=== PATIENT | female | born 1950 | race Caucasian/White ===

== ENCOUNTER 2017-05-11 08:02 | Day surgery (SDC) | payer MEDICARE, OTHER ==
[~2017-05-11 08:02] MED LIST: Lactated Ringers 1,000 ML IV SCH; Lidocaine 1%/Sod Bicarbonate in NS 8.4% 1 ML Syringe IDERM PRN; Sodium Chloride 0.9% 10 ML Syringe FLUSH PRN
--- NOTE | 2017-05-11 09:03 | PCM.PREANE ---
Preanesthetic Assessment - Anesthesia/Transfusion/Family Hx Anesthesia History: Prior Anesthesia Reaction Type of Anesthesia Reaction: Excessive Nausea/Vomiting (With general anesthesia. ) Family History of Anesthesia Reaction: No - Review of Systems General: No Symptoms Pulmonary: Cough (Coughing spells this winter. No fever. Rarely productive. ) Cardiovascular: No Symptoms Gastrointestinal: No Symptoms Neurological: Other (Hard of Hearing) Other: Reports: Easy Bleeding (This winter has had trouble with nose bleeds. No bruising noted. Humidifier at home has helped. ) - Physical Assessment NPO Status Date: 05/11/17 NPO Status Time: 00:00 Pulse: 57 O2 Sat by Pulse Oximetry: 99 Respiratory Rate: 17 Blood Pressure: 120/83 Temperature: 37.2 C Weight: 69 kg ASA Class: 2 Mental Status: Alert & Oriented x3 Airway Class: Mallampati = 2 Dentition: Reports: Normal Dentition Thyro-Mental Finger Breadths: 2 Mouth Opening Finger Breadths: 3 ROM/Head Extension: Other Lungs: Clear to Auscultation Cardiovascular: Murmurs (Known history of murmurs. Mild Mitral and Tricuspid valve regurgitation on ECHO. ) - Lab Values: Laboratory Last Values MRSA (PCR) Negative 05/04/17 10:52 - Allergies Allergies/Adverse Reactions: Allergies Allergy/AdvReac Type Severity Reaction Status Date / Time bacitracin Allergy Mild Hives Verified 05/10/17 07:34 morphine Allergy Mild Itching Verified 05/10/17 07:34 povidone-iodine Allergy Mild Hives Verified 05/10/17 07:34 [From Betadine] soap [From Betadine] Allergy Mild Hives Verified 05/10/17 07:34 iodine Allergy Hives Verified 05/10/17 12:30 eggs Allergy Unknown Cannot Uncoded 05/10/17 12:32 Remember milk Allergy Cannot Uncoded 05/10/17 12:32 Remember - Acknowledgements Anesthesia Type Planned: MAC Pt an Appropriate Candidate for the Planned Anesthesia: Yes Alternatives and Risks of Anesthesia Discussed w Pt/Guardian: Yes Pt/Guardian Understands and Agrees with Anesthesia Plan: Yes PreAnesthesia Questionnaire HEENT History: Reports: Epistaxis, Hard of Hearing, Impaired Vision Other HEENT History: earaches Cardiovascular History: Reports: Heart Murmur Genitourinary History: Reports: Other (See Below) Other Genitourinary History: frequency of urination 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: Reports: Other OB/BYN History: 3 vaginal deliveries, trans abdominal flap on rt and left reconstruction Musculoskeletal History: Reports: Osteoarthritis Neurological History: Other Hematologic History: hyponatremia, anemia Oncologic (Cancer) History: Reports: Breast - Past Surgical History GI Surgical History: Reports: Colonoscopy Female Surgical History: Reports: Breast Implant Other Female Surgeries/Procedures: bilateral mastectomy Male Surgical History: Reports: Mastectomy Musculoskeletal Surgical History: Reports: Carpal Tunnel, Hip Replacement, Knee Replacement Other Musculoskeletal Surgeries/Procedures:: rt swollen calf, Oncologic Surgical History: Reports: Mastectomy Other Oncologic Surgeries/Procedures: breast implants - SUBSTANCE USE Smoking Status *Q: Never Smoker Second Hand Smoke Exposure: No Days Per Week of Alcohol Use: 0 (very little) Recreational Drug Use History: No - HOME MEDS Home Medications: Home Meds Calcium Carbonate [Calcium] 1,000 mg PO DAILY 08/05/15 [History] Clobetasol Propionate 15 gm TP DAILY 08/05/15 [History] Loratadine/Pseudoephedrine [Claritin-D 12 Hour] 5 - 120 mg PO Q12H 08/05/15 [ History] Multivitamin [Multivitamins] 1 each PO DAILY 08/05/15 [History] [place]-3S/DHA/Epa/Fish Oil/D3 [Fish Oil-Vit D3 Softgel] 1 each PO DAILY 08/05/15 [History] traZODone HCl [Trazodone HCl] 50 mg PO BEDTIME PRN 08/05/15 [History] Cholecalciferol (Vitamin D3) [Vitamin D3] 400 unit PO DAILY 05/10/17 [History] Hyluronic Acid Cream applic TOP ASDIRECTED 05/10/17 [History] Lutein/Minerals/Vit A,C & E [Ocuvite] 1 tab PO DAILY 05/10/17 [History] traMADol HCl [Ultram] 50 - 100 mg PO Q6H PRN #10 tablet 05/11/17 [Rx] - CURRENT (IN HOUSE) MEDS Current Meds: Current Medications Lactated Ringer's (Ringers, Lactated) 1,000 mls @ 125 mls/hr IV ASDIRECTED MAT Stop: 05/11/17 23:00 Lidocaine/Sodium Bicarbonate (Buffered Lidocaine 1% In Ns 8.4%) 0.25 ml IDERM ONETIME PRN PRN Reason: Prior to IV Start Stop: 05/11/17 18:00 Sodium Chloride (Saline Flush) 10 ml FLUSH ASDIRECTED PRN PRN Reason: Keep Vein Open Stop: 05/11/17 18:00
[2017-05-11] MEDS ORDERED: Propofol 200 MG/20 ML SDV ONE (09:32)
[2017-05-11] MEDS ORDERED: Lidocaine 1% 0 ML ONE ×2 (09:32)
[2017-05-11] MEDS ORDERED: fentaNYL 100 MCG/2 ML SDV ONE (09:32)
[2017-05-11] MEDS ORDERED: ceFAZolin 1 GM Vial ONE ×2 (09:32)
[2017-05-11] MEDS ORDERED: Lidocaine 1% 30 ML SDV ONE (09:40)
[2017-05-11] MEDS ORDERED: Ondansetron 4 MG/2 ML SDV IVPUSH PRN (10:15)
[2017-05-11] MEDS: Bupivacaine 0.25% 10 ML SDV ONE ×2 (10:28→10:35)
--- NOTE | 2017-05-11 10:52 | PCM48HPAN ---
Post Anesthesia Note - EVALUATION WITHIN 48HRS OF ANESTHETIC Vital Signs in Normal Range: Yes Patient Participated in Evaluation: Yes Respiratory Function Stable: Yes Airway Patent: Yes Cardiovascular Function Stable: Yes Hydration Status Stable: Yes Pain Control Satisfactory: Yes Nausea and Vomiting Control Satisfactory: Yes Mental Status Recovered: Yes
[2017-05-11 12:17] VITALS: BP 107/56
--- NOTE | 2017-05-19 07:56 | PCM.OPNOTE ---
- General Post-Op/Procedure Note Date of Surgery/Procedure: 05/11/17 Operative Procedure(s): right ring finger a1 yokasta release Pre Op Diagnosis: right ring finger stenosing tenosynovitis Post-Op Diagnosis: Same Anesthesia Technique: Local, MAC Primary Surgeon: Alphonso Eng Anesthesia Provider: Suzy Rooney Header Setup Operator: Nu Salinas in mLs: 2 Complications: None Condition: Good
--- NOTE | 2017-05-22 22:11 | OR ---
DATE OF OPERATION: 05/11/2017 SURGEON: Alphonso Eng MD OPERATION PERFORMED: Right ring finger A1 yokasta release. PREOPERATIVE DIAGNOSIS: Right ring finger stenosing tenosynovitis. POSTOPERATIVE DIAGNOSIS: Right ring finger stenosing tenosynovitis. ANESTHESIA: Local MAC. ANESTHESIA PROVIDER: Suzy Rooney CRNA. ASSISTANTS: Nu Salinas PA-C. ESTIMATED BLOOD LOSS: 2 mL. COMPLICATIONS: None. CONDITION: Stable. DESCRIPTION OF PROCEDURE: The patient was identified in the preop holding area. Proper site was marked and identified by the surgeon. The patient was taken back to the operating theater where after adequate anesthesia the patient's right upper extremity was sterilely prepped and draped in the usual sterile fashion. OR time-out was performed. The patient had received 2 g of IV Ancef. At this time, her right upper extremity was exsanguinated and Esmarch was used on the forearm as a tourniquet. At this time, 1% lidocaine without epinephrine and 0.25% Marcaine without epinephrine were used to anesthetize over the A1 yokasta. An incision was made. Blunt dissection was taken down to the A1 yokasta. Ragnell retractors were used to retract the neurovascular bundles. A [place] blade was then used for resection of the A1 yokasta. Tenotomy scissors used was used to make sure it was resected both proximally and distally, making sure not to get into the A2 yokasta. At this time, it was found to be adequately released. The tendon was brought through the wound bed and was found to be adequately released with no signs of tendon adhesions. At this time, adequate saline was irrigated through the wound. 4-0 nylon simple suture was used for closure of the skin. The patient tolerated the procedure well and sent to PACU in stable condition. MMODAL /[id number]
== END 2017-05-11 11:55 | disposition home or self-care (01) ==
LOC: JD.SDS 08:02
PROVIDERS: ATTEND Orthopaedic Surgery
DX: M65.841 Other synovitis and tenosynovitis, right hand (principal); Z79.899 Other long term (current) drug therapy
CPT/HCPCS: 26055; 87641; J0690; J2405; J3010; J7120; 01810; J2001; J2704

== ENCOUNTER 2019-03-01 11:58 | Day surgery (SDC) | payer MEDICARE, OTHER ==
[~2019-03-01 11:58] MED LIST changes: +Cefuroxime 10 MG/ML SYRINGE EYERT SCH; -Lactated Ringers 1,000 ML IV SCH; +Lidocaine 1% PF 2 ML SDV INJECT SCH; -Lidocaine 1%/Sod Bicarbonate in NS 8.4% 1 ML Syringe IDERM PRN; +Pilocarpine 4% Ophth Soln 15 ML Bot EYERT SCH; +Polymyxin B/Trimethoprim 10 ML Bottle EYERT SCH; -Sodium Chloride 0.9% 10 ML Syringe FLUSH PRN
[2019-03-01] MEDS: Ofloxacin 0.3% Ophth Soln 5 ML Bottle EYERT SCH ×3 (12:50→14:28)
[2019-03-01] MEDS: Brimonidine 0.2% Ophth Soln 5 ML Bottle EYERT SCH ×3 (12:55→14:28)
[2019-03-01] MEDS: Phenylephrine 2.5% Ophth Soln 2 ML Bot EYERT SCH ×5 (13:00→14:13)
[2019-03-01] MEDS: Tropicamide 1% Ophth Soln 15 ML Bottle EYERT SCH ×4 (13:05→13:55)
--- NOTE | 2019-03-01 13:32 | PCM.PREANE ---
Preanesthetic Assessment - Procedure Proposed Procedure: cataract right - Anesthesia/Transfusion/Family Hx Anesthesia History: Prior Anesthesia Reaction Type of Anesthesia Reaction: Excessive Nausea/Vomiting Family History of Anesthesia Reaction: No Transfusion History: No Prior Transfusion(s) - Review of Systems General: No Symptoms Pulmonary: No Symptoms Cardiovascular: No Symptoms Gastrointestinal: No Symptoms Neurological: No Symptoms Other: Reports: None - Physical Assessment NPO Status Date: 03/01/19 (breakfast) NPO Status Time: 06:00 Vital Signs: Last Vital Signs Temp 97.4 F 03/01/19 12:25 Pulse 51 L 03/01/19 12:25 Resp 16 03/01/19 12:25 BP 113/60 03/01/19 12:25 Pulse Ox 98 03/01/19 12:25 Height: 5 ft 4 in Weight: 65.317 kg ASA Class: 3 Mental Status: Alert & Oriented x3 Airway Class: Mallampati = 1 Dentition: Reports: Normal Dentition Thyro-Mental Finger Breadths: 3 Mouth Opening Finger Breadths: 3 ROM/Head Extension: Full Lungs: Clear to Auscultation, Normal Respiratory Effort Cardiovascular: Regular Rate, Regular Rhythm, Murmurs - Allergies Allergies/Adverse Reactions: Allergies Allergy/AdvReac Type Severity Reaction Status Date / Time bacitracin Allergy Mild Hives Verified 02/28/19 16:56 morphine Allergy Mild Itching Verified 02/28/19 16:56 povidone-iodine Allergy Mild Hives Verified 02/28/19 16:56 [From Betadine] soap [From Betadine] Allergy Mild Hives Verified 02/28/19 16:56 egg Allergy Cannot Verified 02/28/19 16:56 Remember iodine Allergy Hives Verified 02/28/19 16:56 milk Allergy Cannot Verified 02/28/19 16:56 Remember - Blood Blood Available: No - Anesthesia Plan Beta Philip: Metoprolol Med Last Dose Date: 03/01/19 Med Last Dose Time: 06:00 - Acknowledgements Anesthesia Type Planned: MAC Pt an Appropriate Candidate for the Planned Anesthesia: Yes Alternatives and Risks of Anesthesia Discussed w Pt/Guardian: Yes Pt/Guardian Understands and Agrees with Anesthesia Plan: Yes PreAnesthesia Questionnaire HEENT History: Reports: Epistaxis, Hard of Hearing, Impaired Vision Other HEENT History: earaches Cardiovascular History: Reports: Heart Murmur, Other (See Below) (march 2018 valve aortic and aneurysm repair) Respiratory History: Reports: None Gastrointestinal History: Reports: None Genitourinary History: Reports: Other (See Below) Other Genitourinary History: frequency of urination 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 OB/BYN History: 3 vaginal deliveries, trans abdominal flap on rt and left reconstruction Musculoskeletal History: Reports: Osteoarthritis Neurological History: Other Hematologic History: hyponatremia, anemia Oncologic (Cancer) History: Reports: Breast - Past Surgical History Cardiovascular Surgical History: Reports: Valve Replacement (aortic 2018 ) GI Surgical History: Reports: Colonoscopy Female Surgical History: Reports: Breast Implant Other Female Surgeries/Procedures: bilateral mastectomy Male Surgical History: Reports: Mastectomy (1998) Musculoskeletal Surgical History: Reports: Carpal Tunnel, Hip Replacement, Knee Replacement Other Musculoskeletal Surgeries/Procedures:: rt swollen calf, Oncologic Surgical History: Reports: Mastectomy Other Oncologic Surgeries/Procedures: breast implants - SUBSTANCE USE Tobacco Use Within Last Twelve Months: No Second Hand Smoke Exposure: No Days Per Week of Alcohol Use: 0 Recreational Drug Use History: No - HOME MEDS Home Medications: Home Meds Lutein/Minerals/Vit A,C & E [Ocuvite] 1 tab PO DAILY 05/10/17 [History] Aspirin [Adult Aspirin] 81 mg PO DAILY 04/11/18 [History] Metoprolol Tartrate 12.5 mg PO BID 04/11/18 [History] Rosuvastatin Calcium 5 mg PO DAILY 02/28/19 [History] - CURRENT (IN HOUSE) MEDS Current Meds: Current Medications Brimonidine Tartrate (Alphagan 0.2% Oph Soln) 0 ml EYERT ASDIRECTED MAT Stop: 03/01/19 18:00 Last Admin: 03/01/19 12:55 Dose: 1 drop Cefuroxime Sodium (Zinacef) 0 mg EYERT ASDIRECTED MAT Stop: 03/01/19 18:00 Lidocaine HCl (Xylocaine-Mpf 1%) 0 ml INJECT ASDIRECTED MAT Stop: 03/01/19 18:00 Ofloxacin (Ocuflox 0.3% Oph Soln) 0 ml EYERT ASDIRECTED MAT Stop: 03/01/19 18:00 Last Admin: 03/01/19 12:50 Dose: 1 drop Phenylephrine HCl (Kilo-Synephrine 2.5% Oph Soln) 0 ml EYERT ASDIRECTED MAT Stop: 03/01/19 18:00 Last Admin: 03/01/19 13:25 Dose: 1 drop Pilocarpine HCl (Pilocar 4% Ophth Soln) 0 ml EYERT ASDIRECTED MAT Stop: 03/01/19 18:00 Tetracaine HCl (Tetracaine 0.5% Steri-Unit Daphne) 0 ml EYERT ASDIRECTED MAT Stop: 03/01/19 18:00 Tropicamide (Mydriacyl 1% Ophth Soln) 0 ml EYERT ASDIRECTED MAT Stop: 03/01/19 18:00 Last Admin: 03/01/19 13:20 Dose: 1 drop Discontinued Medications Polymyxin/Trimethoprim Sulfate (Polytrim Ophth Soln) 0 ml EYERT ASDIRECTED MAT Stop: 03/01/19 18:00
[2019-03-01] MEDS: Tetracaine HCl/PF 0.5% 4 ML Bottle EYERT SCH ×2 (14:06→14:18)
--- NOTE | 2019-03-01 14:23 | PCM48HPAN ---
Post Anesthesia Note - EVALUATION WITHIN 48HRS OF ANESTHETIC Vital Signs in Normal Range: Yes Patient Participated in Evaluation: Yes Respiratory Function Stable: Yes Airway Patent: Yes Cardiovascular Function Stable: Yes Hydration Status Stable: Yes Pain Control Satisfactory: Yes Nausea and Vomiting Control Satisfactory: Yes Mental Status Recovered: Yes Vital Signs: Last Vital Signs Temp 36.3 C 03/01/19 12:25 Pulse 51 L 03/01/19 12:25 Resp 16 03/01/19 12:25 BP 113/60 03/01/19 12:25 Pulse Ox 98 03/01/19 12:25
[2019-03-01 14:47] VITALS: BP 121/65; PULSE 52
== END 2019-03-01 14:44 | disposition home or self-care (01) ==
LOC: JD.SDS 11:58
PROVIDERS: ATTEND Ophthalmology
DX: H25.813 Combined forms of age-related cataract, bilateral (principal); H35.3131 Nonexudative age-related macular degeneration, bilateral, early dry stage; H35.363 Drusen (degenerative) of macula, bilateral; H40.003 Preglaucoma, unspecified, bilateral; H44.23 Degenerative myopia, bilateral; H16.223 Keratoconjunctivitis sicca, not specified as Sjogren's, bilateral; H16.103 Unspecified superficial keratitis, bilateral; M19.90 Unspecified osteoarthritis, unspecified site; Z88.5 Allergy status to narcotic agent; Z88.1 Allergy status to other antibiotic agents; Z88.3 Allergy status to other anti-infective agents; Z91.012 Allergy to eggs; Z91.011 Allergy to milk products; Z83.511 Family history of glaucoma; Z83.518 Family history of other specified eye disorder; Z79.82 Long term (current) use of aspirin; Z79.51 Long term (current) use of inhaled steroids; Z79.899 Other long term (current) drug therapy
CPT/HCPCS: 66984; J0697; J2001; A9270-GY

== ENCOUNTER 2019-04-05 07:36 | Day surgery (SDC) | payer MEDICARE, OTHER ==
[2019-04-05] MEDS: Polymyxin B/Trimethoprim 10 ML Bottle EYELF SCH ×4 (08:00→09:48)
--- NOTE | 2019-04-05 08:01 | PCM.PREANE ---
Preanesthetic Assessment - Anesthesia/Transfusion/Family Hx Anesthesia History: Prior Anesthesia Reaction Type of Anesthesia Reaction: Excessive Nausea/Vomiting Family History of Anesthesia Reaction: No Transfusion History: No Prior Transfusion(s) Intubation History: Unknown - Review of Systems General: No Symptoms (cold symptoms for a week, getting beter per patient) Pulmonary: No Symptoms (Mar 2018, aortic valve and aneurysm surgery noted.), Cough Cardiovascular: No Symptoms (Valvular heart disease), Palpitations Gastrointestinal: No Symptoms (GERD on occasion) Neurological: Dizziness (visually related with glasses per patient, and adjustment with metoprolol, with head positioning) Other: Reports: None (BUN elevated avoids NSAIDS), Easy Bleeding (easy bloody noses), Sinus Problem - Physical Assessment NPO Status Date: 04/04/19 NPO Status Time: 18:30 Vital Signs: HR: 55 BP:109/62 Resp: 16 Sat: 98% Temp: 97.2 Height: 1.7 m Weight: 68.039 kg ASA Class: 2 Mental Status: Alert & Oriented x3 Airway Class: Mallampati = 2 Dentition: Reports: Normal Dentition, [place] Thyro-Mental Finger Breadths: 3 Mouth Opening Finger Breadths: 3 ROM/Head Extension: Full Lungs: Clear to Auscultation, Normal Respiratory Effort Cardiovascular: Regular Rate, Regular Rhythm, No Murmurs - Allergies Allergies/Adverse Reactions: Allergies Allergy/AdvReac Type Severity Reaction Status Date / Time bacitracin Allergy Mild Hives Verified 04/02/19 15:10 morphine Allergy Mild Itching Verified 04/02/19 15:10 povidone-iodine Allergy Mild Hives Verified 04/02/19 15:10 [From Betadine] soap [From Betadine] Allergy Mild Hives Verified 04/02/19 15:10 - Anesthesia Plan Pre-Op Medication Ordered: Beta Philip Beta Philip: Metoprolol Med Last Dose Date: 04/05/19 Med Last Dose Time: 06:00 - Acknowledgements Anesthesia Type Planned: MAC Pt an Appropriate Candidate for the Planned Anesthesia: Yes Alternatives and Risks of Anesthesia Discussed w Pt/Guardian: Yes Pt/Guardian Understands and Agrees with Anesthesia Plan: Yes PreAnesthesia Questionnaire HEENT History: Reports: Epistaxis, Hard of Hearing, Impaired Vision Other HEENT History: earaches Cardiovascular History: Reports: Heart Murmur, Other (See Below) (march 2018 valve aortic and aneurysm repair) Respiratory History: Reports: None Gastrointestinal History: Reports: None Genitourinary History: Reports: Other (See Below) Other Genitourinary History: frequency of urination 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 OB/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 History: 3 vaginal deliveries, trans abdominal flap on rt and left reconstruction Musculoskeletal History: Reports: Osteoarthritis Neurological History: Other Hematologic History: hyponatremia, anemia Oncologic (Cancer) History: Reports: Breast - Past Surgical History Cardiovascular Surgical History: Reports: Valve Replacement (aortic 2018 ) GI Surgical History: Reports: Colonoscopy Female Surgical History: Reports: Breast Implant Other Female Surgeries/Procedures: bilateral mastectomy Male Surgical History: Reports: Mastectomy (1998) Musculoskeletal Surgical History: Reports: Carpal Tunnel, Hip Replacement, Knee Replacement Other Musculoskeletal Surgeries/Procedures:: rt swollen calf, Oncologic Surgical History: Reports: Mastectomy Other Oncologic Surgeries/Procedures: breast implants - HOME MEDS Home Medications: Home Meds Lutein/Minerals/Vit A,C & E [Ocuvite] 1 tab PO DAILY 05/10/17 [History] Aspirin [Adult Aspirin] 81 mg PO DAILY 04/11/18 [History] Rosuvastatin Calcium 5 mg PO DAILY 02/28/19 [History] Acetaminophen/Diphenhydramine [Acetaminophen Pm Caplet] 1 tab PO BEDTIME PRN [History] Calcium Carbonate/Vitamin D3 [Calcium 500 + Vit D 200 Caplet] 2 tab PO DAILY [History] Fluticasone Propionate [Flonase] 1 spray NASBOTH DAILY 04/02/19 [History] Hyaluronic Acid, Hydrolyzed [Hydrolyzed Hyaluronic Acid] 1 gm VAG ASDIRECTED [History] Melatonin 3 mg PO BEDTIME PRN 04/02/19 [History] Metoprolol Succinate 25 mg PO DAILY 04/02/19 [History] Multivitamin [One-A-Day Essential] 1 tab PO DAILY 04/02/19 [History] Triamcinolone Acetonide [Triamcinolone Acetonide 0.1% Oint] 1 applic TOP ASDIRECTED 04/02/19 [History] traZODone HCl [Trazodone HCl] 50 mg PO BEDTIME PRN 04/02/19 [History] - CURRENT (IN HOUSE) MEDS Current Meds: Current Medications Brimonidine Tartrate (Alphagan 0.2% Ophth Soln) 0 ml EYELF ASDIRECTED MAT Stop: 04/05/19 18:00 Cefuroxime Sodium (Zinacef) 0 mg EYELF ASDIRECTED MAT Stop: 04/05/19 18:00 Lidocaine HCl (Xylocaine-Mpf 1%) 0 ml INJECT ASDIRECTED MAT Stop: 04/05/19 18:00 Phenylephrine HCl (Kilo-Synephrine 2.5% Ophth Soln) 0 ml EYELF ASDIRECTED MAT Stop: 04/05/19 18:00 Pilocarpine HCl (Pilocar 4% Ophth Soln) 0 ml EYELF ASDIRECTED MAT Stop: 04/05/19 18:00 Polymyxin/Trimethoprim Sulfate (Polytrim Ophth Soln) 0 ml EYELF ASDIRECTED MAT Stop: 04/05/19 18:00 Tetracaine HCl (Tetracaine 0.5% Steri-Unit Daphne) 0 ml EYELF ASDIRECTED MAT Stop: 04/05/19 18:00 Tropicamide (Mydriacyl 1% Ophth Soln) 0 ml EYELF ASDIRECTED MAT Stop: 04/05/19 18:00
[2019-04-05] MEDS: Brimonidine 0.2% Ophth Soln 5 ML Bottle EYELF SCH ×4 (08:05→09:48)
[2019-04-05] MEDS: Phenylephrine 2.5% Ophth Soln 2 ML Bot EYELF SCH ×6 (08:13→09:42)
[2019-04-05] MEDS: Tropicamide 1% Ophth Soln 15 ML Bottle EYELF SCH ×4 (08:18→09:16)
[2019-04-05] MEDS: Tetracaine HCl/PF 0.5% 4 ML Bottle EYELF SCH ×3 (09:25→09:42)
[2019-04-05] MEDS: Lidocaine 1% PF 2 ML SDV INJECT SCH ×2 (09:36→09:43)
[2019-04-05] MEDS: Cefuroxime 10 MG/ML SYRINGE EYELF SCH ×2 (09:43→09:47)
[2019-04-05] MEDS: Pilocarpine 4% Ophth Soln 15 ML Bot EYELF SCH ×2 (09:43→09:48)
--- NOTE | 2019-04-05 09:49 | PCM48HPAN ---
Post Anesthesia Note - EVALUATION WITHIN 48HRS OF ANESTHETIC Vital Signs in Normal Range: Yes Patient Participated in Evaluation: Yes Respiratory Function Stable: Yes Airway Patent: Yes Cardiovascular Function Stable: Yes Hydration Status Stable: Yes Pain Control Satisfactory: Yes Nausea and Vomiting Control Satisfactory: Yes Mental Status Recovered: Yes Vital Signs: Last Vital Signs Temp 36.2 C 04/05/19 07:40 Pulse 55 L 04/05/19 07:40 Resp 16 04/05/19 07:40 BP 109/62 04/05/19 07:40 Pulse Ox 98 04/05/19 07:40
[2019-04-05 11:16] VITALS: BP 99/56; PULSE 53
== END 2019-04-05 10:01 | disposition home or self-care (01) ==
LOC: JD.SDS 07:36
PROVIDERS: ATTEND Ophthalmology
DX: H25.812 Combined forms of age-related cataract, left eye (principal); H44.23 Degenerative myopia, bilateral; M19.90 Unspecified osteoarthritis, unspecified site; Z88.5 Allergy status to narcotic agent; Z88.8 Allergy status to other drugs, medicaments and biological substances; Z91.048 Other nonmedicinal substance allergy status; Z79.82 Long term (current) use of aspirin; Z79.899 Other long term (current) drug therapy; Z98.41 Cataract extraction status, right eye; Z96.1 Presence of intraocular lens
CPT/HCPCS: 66984; J0697; J2001; C1780

== ENCOUNTER 2019-12-21 21:59 | Emergency (ER) | payer MEDICARE, OTHER ==
[2019-12-21 22:07] VITALS: BP 134/70; PULSE 71
--- NOTE | 2019-12-21 22:53 | EDM.PDOC ---
ED HPI GENERAL MEDICAL PROBLEM - General Chief Complaint: General Stated Complaint: [place] AMB Time Seen by Provider: 12/21/19 22:14 Source of Information: Reports: Patient History Limitations: Reports: Altered Mental Status (Patient is confused) - History of Present Illness INITIAL COMMENTS - FREE TEXT/NARRATIVE: Mrs. Boyer is a very pleasant 69-year-old woman who is now brought to the ED by EMS for confusion and memory loss. 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 The family was apparently driving the patient to [place] to be evaluated, when she complained of anterior left shoulder pain, therefore they pulled over and called EMS. EMS brought the pa tient to the ED. From the patient's perspective, she states that she does not recall undergoing any sort of surgical procedure yesterday. She seems to recall a consultation with a vascular surgeon earlier this week. She states that she was out on a boat earlier today, possibly fishing, although she does not recall catching anything. She states that ordinarily it is her responsibility to bring the boat and, but she does not recall doing that, either. States that she had some anterior left shoulder pain around the time that she came to the ED, but that it has since resolved, and at this time, she has no pain whatsoever, including no headache. She denies recent dyspnea or palpitations. No recent nausea or vomiting. Here in the ED, the patient is found to be hemodynamically stable, afebrile, saturating 96% on room air. The patient denies having a recent fever, chills, sore throat, ear pain, nasal or sinus congestion, cough, dyspnea, chest pain, palpitations, nausea, vomiting, constipation, diarrhea, abdominal pain, urinary symptoms, recent weight gain or weight loss, recent bloody bowel movements or black bowel movements, recent joint aches, headaches, or rashes. The patient's Women's Health provider is Fela douglas NP. Her Eligibility Services Representative is Dr. Gurjit Tavares. Her Orthopedic Surgeon is Dr. Alphonso Eng. - Related Data Allergies Allergy/AdvReac Type Severity Reaction Status Date / Time bacitracin Allergy Mild Hives Verified 04/02/19 15:10 morphine Allergy Mild Itching Verified 04/02/19 15:10 povidone-iodine Allergy Mild Hives Verified 04/02/19 15:10 [From Betadine] soap [From Betadine] Allergy Mild Hives Verified 04/02/19 15:10 Home Meds: Home Meds Lutein/Minerals/Vit A,C & E [Ocuvite] 1 tab PO DAILY 05/10/17 [History] Aspirin [Adult Aspirin] 81 mg PO DAILY 04/11/18 [History] Rosuvastatin Calcium 5 mg PO DAILY 02/28/19 [History] Acetaminophen/Diphenhydramine [Acetaminophen Pm Caplet] 1 tab PO BEDTIME PRN 04/02/19 [History] Calcium Carbonate/Vitamin D3 [Calcium 500 + Vit D 200 Caplet] 2 tab PO DAILY 04/02/19 [History] Fluticasone Propionate [Flonase] 1 spray NASBOTH DAILY 04/02/19 [History] Hyaluronic Acid, Hydrolyzed [Hydrolyzed Hyaluronic Acid] 1 gm VAG ASDIRECTED 04/02/19 [History] Melatonin 3 mg PO BEDTIME PRN 04/02/19 [History] Metoprolol Succinate 25 mg PO DAILY 04/02/19 [History] Multivitamin [One-A-Day Essential] 1 tab PO DAILY 04/02/19 [History] Triamcinolone Acetonide [Triamcinolone Acetonide 0.1% Oint] 1 applic TOP ASDIRECTED 04/02/19 [History] traZODone HCl [Trazodone HCl] 50 mg PO BEDTIME PRN 04/02/19 [History] Past Medical History HEENT History: Reports: Hard of Hearing (wears hearing aids), Impaired Vision Cardiovascular History: Reports: Aneurysm (aortic, s/p repair), High Cholesterol, Hypertension Respiratory History: Reports: Sleep Apnea (nightly CPAP 11) Gastrointestinal History: Reports: Colon Polyp Genitourinary History: Reports: Urinary Incontinence (stress incontinence) Musculoskeletal History: Reports: Osteoarthritis Psychiatric History: Reports: Anxiety (untreated) Oncologic (Cancer) History: Reports: Breast - Past Surgical History HEENT Surgical History: Reports: Cataract Surgery (bilateral), Oral Surgery (dental extractions) Cardiovascular Surgical History: Reports: Aneurysm (aortic (ascending?)), Valve Replacement (bovine aortic) GI Surgical History: Reports: Colonoscopy (x 2) Female Surgical History: Reports: Breast Implant, D&C (x 1), Tubal Ligation Musculoskeletal Surgical History: Reports: Carpal Tunnel, Hip Replacement (right), Knee Replacement (right) Oncologic Surgical History: Reports: Mastectomy (bilateral) Social & Family History - Tobacco Use Smoking Status *Q: Never Smoker - Caffeine Use Caffeine Use: Reports: Soda, Tea - Alcohol Use Alcohol Use History: Yes Alcohol Use Frequency: Rarely - Recreational Drug Use Recreational Drug Use: No - Living Situation & Occupation Living situation: Reports: , with Spouse Occupation: Retired ED ROS GENERAL - Review of Systems Review Of Systems: Comprehensive ROS is negative, except as noted in HPI. ED EXAM, GENERAL - Physical Exam Exam: See Below Exam Limited By: No Limitations General Appearance: Alert, WD/WN, No Apparent Distress Eye Exam: Bilateral Eye: EOMI, Normal Inspection, PERRL (s/p cataract surgery, but still good constriction) Ears: Normal External Exam, Hearing Grossly Normal Nose: Normal Inspection Throat/Mouth: Normal Inspection, Normal Lips, Normal Voice, No Airway Compromise Head: Atraumatic, Normocephalic Neck: Normal Inspection, Full Range of Motion, Carotid Bruit (left). No: Lymphadenopathy (L), Lymphadenopathy (R) Respiratory/Chest: No Respiratory Distress, Lungs Clear, Normal Breath Sounds, No Accessory Muscle Use Cardiovascular: Normal Peripheral Pulses, Regular Rate, Rhythm, No Gallop, No JVD, No Murmur, No Rub, Systolic Murmur (heard best at [facility]) Peripheral Pulses: 3+: Radial (L), Radial (R) GI/Abdominal: Normal Bowel Sounds, Soft, Non-Tender, No Organomegaly, No Distention, No Abnormal Bruit, No Mass Back Exam: Normal Inspection, Full Range of Motion, NT Extremities: Normal Inspection, Normal Range of Motion, No Pedal Edema, Normal Capillary Refill Neurological: Alert, Oriented, CN II-XII Intact, No Motor/Sensory Deficits, Confused Psychiatric: Normal Affect Skin Exam: Warm, Dry, Intact, Normal Color, No Rash EKG INTERPRETATION EKG Date: 12/21/19 Time: 22:00 Rhythm: NSR Rate (Beats/Min): 63 [place]: Normal P-Wave: Present QRS: Normal ST-T: Depressed (<1 mm to limb + leads, but no T wave inversions to suggest ischemia) QT: Normal Comparison: NA - No Prior EKG Course - Vital Signs Last Recorded V/S: Last Vital Signs Temp 36.9 C 12/21/19 22:03 Pulse 71 12/21/19 22:03 Resp 16 12/21/19 22:03 BP 134/70 12/21/19 22:03 Pulse Ox 96 12/21/19 22:03 - Orders/Labs/Meds Orders: Active Orders 24 hr Category Date Time Status EKG Documentation Completion [RC] STAT Care 12/21/19 22:40 Active Chest 2V [CR] Stat Exams 12/21/19 22:39 Taken Head wo Cont [CT] Stat Exams 12/21/19 22:39 Taken Labs: Laboratory Tests 12/21/19 12/21/19 12/21/19 Range/Units 22:50 22:50 22:50 WBC 6.57 (3.98-10.04) K/mm3 RBC 3.98 (3.98-5.22) M/mm3 Hgb 12.5 (11.2-15.7) gm/dl Hct 38.7 (34.1-44.9) % MCV 97.2 H (79.4-94.8) fl MCH 31.4 (25.6-32.2) pg MCHC 32.3 (32.2-35.5) g/dl RDW Std Deviation 46.1 (36.4-46.3) fL Plt Count 189 D (182-369) K/mm3 MPV 10.2 (9.4-12.3) fl Neutrophils % (Manual) 70 H (40-60) % Band Neutrophils % 0 (0-10) % Lymphocytes % (Manual) 23 (20-40) % Atypical Lymphs % 0 % Monocytes % (Manual) 4 (2-10) % Eosinophils % (Manual) 2 (0.7-5.8) % Basophils % (Manual) 1 (0.1-1.2) Platelet Estimate Adequate Poikilocytosis 1+ slight Ovalocytes 1+ slight RBC Morph Comment Not Reportable D-Dimer, Quantitative 0.65 H (0.19-0.50) mg/L Sodium 141 (136-145) mEq/L Potassium 4.1 (3.5-5.1) mEq/L Chloride 105 (98-107) mEq/L Carbon Dioxide 30 (21-32) mEq/L Anion Gap 10.1 (5-15) BUN 33 H (7-18) mg/dL Creatinine 1.5 H (0.55-1.02) mg/dL Est Cr Clr Drug Dosing 30.57 mL/min Estimated GFR (MDRD) 34 (>60) mL/min BUN/Creatinine Ratio 22.0 H (14-18) Glucose 134 H (80-115) mg/dL Calcium 8.4 L (8.5-10.1) mg/dL Magnesium 2.0 (1.8-2.4) mg/dl Total Bilirubin 0.7 (0.2-1.0) mg/dL AST 15 (15-37) U/L ALT 28 (14-59) U/L Alkaline Phosphatase 51 (46-116) U/L Troponin I < 0.017 (0.00-0.056) ng/mL Total Protein 8.2 (6.4-8.2) g/dl Albumin 3.3 L (3.4-5.0) g/dl Globulin 4.9 gm/dL Albumin/Globulin Ratio 0.7 L (1-2) TSH 3rd Generation 3.004 (0.358-3.74) uIU/mL Urine Color (Yellow) Urine Appearance (Clear) Urine pH (5.0-8.0) Ur Specific [place] (1.005-1.030) Urine Protein (Negative) Urine Glucose (UA) (Negative) Urine Ketones (Negative) Urine Occult Blood (Negative) Urine Nitrite (Negative) Urine Bilirubin (Negative) Urine Urobilinogen (0.2-1.0) Ur Leukocyte Esterase (Negative) Urine RBC (0-5) /hpf Urine WBC (0-5) /hpf Ur Epithelial Cells (0-5) /hpf Urine Bacteria (FEW) /hpf Urine Mucus (FEW) /hpf SARS-CoV-2 RNA (JAMES) (NEGATIVE) 12/22/19 12/22/19 Range/Units 00:00 00:04 WBC (3.98-10.04) K/mm3 RBC (3.98-5.22) M/mm3 Hgb (11.2-15.7) gm/dl Hct (34.1-44.9) % MCV (79.4-94.8) fl MCH (25.6-32.2) pg MCHC (32.2-35.5) g/dl RDW Std Deviation (36.4-46.3) fL Plt Count (182-369) K/mm3 MPV (9.4-12.3) fl Neutrophils % (Manual) (40-60) % Band Neutrophils % (0-10) % Lymphocytes % (Manual) (20-40) % Atypical Lymphs % % Monocytes % (Manual) (2-10) % Eosinophils % (Manual) (0.7-5.8) % Basophils % (Manual) (0.1-1.2) Platelet Estimate Poikilocytosis Ovalocytes RBC Morph Comment D-Dimer, Quantitative (0.19-0.50) mg/L Sodium (136-145) mEq/L Potassium (3.5-5.1) mEq/L Chloride (98-107) mEq/L Carbon Dioxide (21-32) mEq/L Anion Gap (5-15) BUN (7-18) mg/dL Creatinine (0.55-1.02) mg/dL Est Cr Clr Drug Dosing mL/min Estimated GFR (MDRD) (>60) mL/min BUN/Creatinine Ratio (14-18) Glucose (80-115) mg/dL Calcium (8.5-10.1) mg/dL Magnesium (1.8-2.4) mg/dl Total Bilirubin (0.2-1.0) mg/dL AST (15-37) U/L ALT (14-59) U/L Alkaline Phosphatase (46-116) U/L Troponin I (0.00-0.056) ng/mL Total Protein (6.4-8.2) g/dl Albumin (3.4-5.0) g/dl Globulin gm/dL Albumin/Globulin Ratio (1-2) TSH 3rd Generation (0.358-3.74) uIU/mL Urine Color Yellow (Yellow) Urine Appearance Clear (Clear) Urine pH 7.0 (5.0-8.0) Ur Specific [place] 1.020 (1.005-1.030) Urine Protein Negative (Negative) Urine Glucose (UA) Negative (Negative) Urine Ketones Negative (Negative) Urine Occult Blood Trace-intact H (Negative) Urine Nitrite Negative (Negative) Urine Bilirubin Negative (Negative) Urine Urobilinogen 0.2 (0.2-1.0) Ur Leukocyte Esterase Negative (Negative) Urine RBC 5-10 H (0-5) /hpf Urine WBC 0-5 (0-5) /hpf Ur Epithelial Cells Not seen (0-5) /hpf Urine Bacteria Rare (FEW) /hpf Urine Mucus Not seen (FEW) /hpf SARS-CoV-2 RNA (JAMES) Negative (NEGATIVE) - Re-Assessments/Exams Free Text/Narrative Re-Assessment/Exam: 12/21/19 22:44 As of, the patient was brought to the ED by EMS for unclear reasons, but most likely due to memory loss. I was told by the patient's triage nurse that the patient had undergone vein sclerosis yesterday, then became confused today. I am told that the family was driving the patient to [place] for evaluation, when they felt that her condition declined, possibly involving the development of left shoulder burning sensation, therefore they pulled over and called EMS, who brought her to the ED. Unfortunately, there are no family members here in the ED. The patient is oriented but still quite confused, unable to tell me much detail about what happened to her over the course of today. She tells me that she believes that she met with a vascular surgeon regarding vein sclerosis treatment earlier this week, but denies having undergone any procedures yesterday. Her neurologic examination, including her cerebellar function, is completely normal. An ECG obtained at triage shows a slight ST depression across the precordium and limb leads, but no T wave inversions to suggest ischemia, and the patient denies having recent chest pain or dyspnea. I have ordered a work-up that includes blood work, a urinalysis, a chest x-ray, a CT of the head without contrast, and a swab for the SARS-CoV-2 virus. 12/21/19 23:38 Two-view chest x-ray is read by [facility] as: 1. Postoperative chest 2. Hyperinflation suggests COPD 3. Minor linear scar and/or atelectasis left mid lung CT of the head without contrast is read by [facility] as "No acute intracranial findings." 12/21/19 23:53 The patient's CBC is unremarkable. Her CMP is remarkable for a BUN/Cr elevated at 33/1.5, and a blood glucose elevated at 134, with the remainder of her CMP being unremarkable. Her magnesium level is within normal limits at 2.0. Her TSH is within normal limits at 3.004. Her troponin is undetectably low. Her D-dimer is mildly elevated at 0.65. A urine sample for urinalysis and swab for the SARS-CoV-2 virus have not yet been collected. Review of prior labs finds that the patient's BUN/Cr were normal at 25/0.9 in 02/21/2018, and that, in fact, her renal function and blood glucose have been normal on all prior labs. I believe that the patient's mildly elevated D-dimer is as result of her renal insufficiency and age, and is not consistent with a pulmonary embolus, therefore I am not recommending a CT angiogram of the chest. 12/22/19 00:34 The patient's urinalysis is remarkable for trace occult blood and 5-10 RBCs, but is otherwise unremarkable. Results of the swab for the SARS-CoV-2 virus are still pending. 12/22/19 01:23 The patient's a swab for the SARS-CoV-2 virus has returned negative. 12/22/19 02:44 Test results discussed with the patient. As above, today's work-up is grossly unremarkable, and does not explain the cause of her confusion and memory loss. I did and recommending admission to the hospital for further evaluation, however, we do not have any beds here. Her family was taking her to [facility] when they felt that her condition worsened, therefore I will see if we can transfer her there. 12/22/19 02:47 Case discussed with Zaida at [facility], at 02:44. Unfortunately, they do not have any beds available. She was able to confirm for me that the vein sclerosis procedure was not done at their facility. 12/22/19 02:55 Case discussed with Glenny at [facility] at 02:51. She is confident that they will be able to take the patient, but needs to address something before she can connect me to the Hospitalist, Dr. Fernandez. She will call me back. 12/22/19 03:22 Case discussed with the patient's daughter, Yasmine. She confirmed that the patient underwent some sort of a vein stripping procedure in [place] on , but she does not recall the name of the physician, or where it was performed. She confirmed that the patient developed confusion and memory loss today, and that they were driving her to [place] for evaluation, when she complained of shoulder pain, therefore they pulled over and called EMS. I explained why we would like to transfer the patient to [place], and that [facility] is full. She is agreeable with the patient being admitted to [facility], and is willing to drive her there. Case discussed with Dr. Fernandez at 03:05. She accepted the patient for transfer to their facility. She is okay with the patient being transferred by private vehicle. 12/22/19 03:25 I spoke with the patient's daughter Yasmine, letting her know that she can drive her mother to [facility]. She will come over now. 12/22/19 03:49 The chest x-ray and CT images have been pushed to [facility]. Departure - Departure Time of Disposition: 03:26 Disposition: DC/Tfer to Acute Hospital 02 Condition: Good Clinical Impression: Confusion - Discharge Information *PRESCRIPTION DRUG MONITORING PROGRAM REVIEWED*: Not Applicable *COPY OF PRESCRIPTION DRUG MONITORING REPORT IN PATIENT OUMOU: Not Applicable Referrals: Fela Douglas NP [Nurse Practitioner] - Gurjit Tavares MD [Ordering Only Provider] - Alphonso Eng MD [Physician] - Forms: ED Department Discharge Sepsis Event Note (ED) - Evaluation Sepsis Screening Result: No Definite Risk - Focused Exam Vital Signs: Vital Signs Temp Pulse Resp BP Pulse Ox 12/21/19 22:03 36.9 C 71 16 134/70 96 - My Orders Last 24 Hours: My Active Orders 12/21/19 22:39 Chest 2V [CR] Stat Head wo Cont [CT] Stat 12/21/19 22:40 EKG Documentation Completion [RC] STAT - Assessment/Plan Last 24 Hours: My Active Orders 12/21/19 22:39 Chest 2V [CR] Stat Head wo Cont [CT] Stat 12/21/19 22:40 EKG Documentation Completion [RC] STAT
--- NOTE | 2020-01-16 11:09 | CT ---
PROCEDURE INFORMATION: Exam: CT Head Without Contrast Exam date and time: 12/21/2019 10:43 PM Age: 69 years old Clinical indication: Altered mental status/memory loss; Confusion or disorientation TECHNIQUE: Imaging protocol: Computed tomography of the head without contrast. COMPARISON: No relevant prior studies available. FINDINGS: Brain: The nelson-white differentiation is preserved. No intracranial mass collection or hemorrhage is seen. Cerebral ventricles: The ventricular size and sulcal pattern is normal. Bones/joints: The temporal bones are symmetric and unremarkable. Paranasal sinuses: The visualized paranasal sinuses are normal. Mastoid air cells: Mastoid air cells well aerated. Soft tissues: There is no soft tissue abnormality seen. IMPRESSION: No acute intracranial findings. Thank you for allowing us to participate in the care of your patient. Dictated and Authenticated by: Getachew Murphy MD 01/14/2020 7:12 PM Central Time ([place] & [place]) YULISA
--- NOTE | 2020-01-16 11:10 | CR ---
PROCEDURE INFORMATION: Exam: XR Chest, 2 Views Exam date and time: 12/21/2019 11:07 PM Age: 69 years old Clinical indication: Other: Confusion; Prior surgery; Surgery date: 6+ months; Surgery type: Heart valve replacement, bypass TECHNIQUE: Imaging protocol: XR of the chest Views: 2 views. COMPARISON: No relevant prior studies available. FINDINGS: Lungs: Linear atelectasis or scar left midlung. No consolidation. There is no evidence of pulmonary edema. The lungs are moderately hyperinflated. Pleural space: No pleural effusion. No pneumothorax. Heart/Mediastinum: Status post aortic valve replacement. The heart is not enlarged. Bones/joints: Status post median sternotomy. Soft tissues: Clips are identified in the right axilla. IMPRESSION: 1. Postoperative chest 2. Hyperinflation suggests COPD 3. Minor linear scar and/or atelectasis left mid lung Thank you for allowing us to participate in the care of your patient. Dictated and Authenticated by: Getachew Murphy MD 01/14/2020 7:17 PM Central Time ([place] & [place]) YULISA
== END 2019-12-22 04:15 ==
LOC: JD.ED 21:59
DX: R41.0 Disorientation, unspecified (principal); E78.00 Pure hypercholesterolemia, unspecified; I10 Essential (primary) hypertension; M19.90 Unspecified osteoarthritis, unspecified site; Z20.828 Contact with and (suspected) exposure to other viral communicable diseases; Z88.1 Allergy status to other antibiotic agents; Z88.5 Allergy status to narcotic agent; Z91.048 Other nonmedicinal substance allergy status; Z79.82 Long term (current) use of aspirin; Z79.899 Other long term (current) drug therapy
CPT/HCPCS: 36415; 70450; 71046; 80053; 81001; 83735; 84443; 84484; 85007; 85027; 85379; 93005; 99285; U0002; 93010

== ENCOUNTER 2021-04-02 07:40 | Day surgery (SDC) | payer MEDICARE, OTHER ==
[2021-04-02] MEDS: Lactated Ringers 1,000 ML IV SCH ×2 (07:30→10:45)
[~2021-04-02 07:40] MED LIST changes: +Acetaminophen 325 MG Tab PO SCH; -Cefuroxime 10 MG/ML SYRINGE EYERT SCH; +Dexamethasone 4 MG/ML 5 ML MDV ONE; +Dexmedetomidine 200 MCG/2 ML SDV ONE; -Lidocaine 1% PF 2 ML SDV INJECT SCH; +Lidocaine 1%/Sod Bicarbonate in NS 8.4% 1 ML Syringe IDERM PRN; +Lidocaine 2% with EPINEPHrine 1:200,000 20 ML SDV ONE; +Midazolam 1 MG/ML 2 ML SDV ONE; -Pilocarpine 4% Ophth Soln 15 ML Bot EYERT SCH; -Polymyxin B/Trimethoprim 10 ML Bottle EYERT SCH; +Pregabalin 25 MG Cap PO SCH; +Propofol 200 MG/20 ML SDV ONE; +Ropivacaine 0.5% 5 MG/ML 30 ML SDV ONE; +Sodium Chloride 0.9% 10 ML Syringe FLUSH SCH; +Vancomycin 1 GM SDV ONE; +fentaNYL 100 MCG/2 ML SDV ONE; +oxyCODONE ER 10 MG TAB.ER PO SCH
[2021-04-02] MEDS ORDERED: ceFAZolin 1 GM Vial ONE (08:54)
[2021-04-02] MEDS ORDERED: Acetaminophen/HYDROcodone 325-5 MG Tab PO PRN (10:30)
[2021-04-02] MEDS ORDERED: Cyclobenzaprine 10 MG Tab PO ONE (10:30)
[2021-04-02] MEDS ORDERED: Ondansetron 4 MG/2 ML SDV IVPUSH ONE (11:26)
[2021-04-02] MEDS ORDERED: Haloperidol Lactate 5 MG/ML SDV IVPUSH ONE (12:29)
[2021-04-02 15:56] VITALS: BP 104/63; PULSE 54
== END 2021-04-02 14:55 | disposition home or self-care (01) ==
LOC: JD.SDS 07:40
PROVIDERS: ATTEND Orthopaedic Surgery
DX: M19.012 Primary osteoarthritis, left shoulder (principal); M75.102 Unspecified rotator cuff tear or rupture of left shoulder, not specified as traumatic; G47.30 Sleep apnea, unspecified; I48.0 Paroxysmal atrial fibrillation; I10 Essential (primary) hypertension; E78.00 Pure hypercholesterolemia, unspecified; Z98.890 Other specified postprocedural states; Z79.899 Other long term (current) drug therapy; Z88.8 Allergy status to other drugs, medicaments and biological substances; Z88.5 Allergy status to narcotic agent; Z78.0 Asymptomatic menopausal state; G89.18 Other acute postprocedural pain
CPT/HCPCS: 01638; 64415; 73020-26-LT; 73020-LT; 76000; 76000-26; 76942; 97161-GP; 99100; A9270-GY; C1713; C1769; C1776; J0690; J1100; J1630; J2250; J2405; J2704; J2795; J3010; J3370; J7120